=== PATIENT | female | born 1990 | race African-American/Black ===

== ENCOUNTER 2020-10-11 05:10 | Inpatient (IN) ==
[2020-10-11] MEDS ORDERED: ONDANSETRON 4 MG/2 ML VIAL IV PRN (05:18)
[2020-10-11] MEDS ORDERED: OXYTOCIN/LR 20 UNIT/1,000 ML BAG IV SCH (06:00)
[2020-10-11 06:02] LABS: Basophils % 0.1 % (0.0-0.8); Eosinophils # 0.1 10*3/uL (0.0-0.87); Eosinophils % 0.7 % (0.00-10.9); Hemoglobin 11.7 GM/DL (12.0-16.0); Immature Granulocytes % 0.5 %; Immature Granulocytes Absolute 0.05 #; Lymphocytes # 2.1 10*3/uL (1.4-4.0); Mean Corpuscular HGB Conc 31.6 GM/DL (32-36); Mean Corpuscular Volume 78.4 FL (87-102); Mean Platelet Volume 11.8 FL (9.6-12.0); NRBC # 0.02 10*3/uL; Neutrophils % 73.7 % (38.7-73.9); Platelet Count 277 T/CUMM (130-400); Red Blood Count 4.72 MC/CUMM (3.8-5.5); White Blood Count 10.9 T/CUMM (4-12)
[2020-10-11] MEDS: LACTATED RINGERS 1,000 ML IV SCH ×2 (06:03→12:06)
[2020-10-11 06:25] LABS: Alanine Aminotransferase 22 U/L (13-56); Albumin 2.8 G/DL (3.4-5.0); Alkaline Phosphatase 145 U/L (45-117); Aspartate Amino Transferase 26 U/L (0-37); Bilirubin,Total < 0.39 MG/DL (0.2-1.0); Blood Urea Nitrogen 5 MG/DL (7-18); Calcium 9.1 MG/DL (8.5-10.1); Carbon Dioxide 17 MMOL/L (21-32); Estimated Glom Filtration Rate 130 ML/MIN; Glucose 80 MG/DL (74-106); Osmolality,Calculated 270.7 MOS/KG (273-304); Sodium 138 MMOL/L (136-145); Total Protein 7.2 G/DL (6.4-8.3)
[2020-10-11] MEDS ORDERED: BUTORPHANOL 2 MG/ML VIAL IV PRN (06:36)
[2020-10-11] MEDS ORDERED: MEPERIDINE 50 MG/1 ML VIAL IV PRN (06:36)
[2020-10-11] MEDS ORDERED: FAMOTIDINE 20 MG/2 ML VIAL IV ONE (09:29)
[2020-10-11] MEDS ORDERED: LACTATED RINGERS 1,000 ML IV ONE (09:29)
[2020-10-11] MEDS ORDERED: CITRIC ACID/SODIUM CITRATE 30 ML UDCUP PO ONE (09:29)
[2020-10-11] MEDS ORDERED: NALOXONE 0.4 MG/ML VIAL IV PRN (09:30)
[2020-10-11] MEDS ORDERED: hydrOXYzine HCL 25 MG/1 ML VIAL IM PRN (09:30)
[2020-10-11] MEDS ORDERED: PROMETHAZINE 25 MG/1 ML VIAL IM ONE (09:30)
[2020-10-11] MEDS ORDERED: diphenhydrAMINE 50 MG/1 ML VIAL IV PRN ×2 (09:30)
[2020-10-11] MEDS ORDERED: ePHEDrine 50 MG/ML VIAL IV PRN (09:30)
[2020-10-11] MEDS ORDERED: fentaNYL 2 MCG/ROPIV 0.2% EPID 100 ML EPIDURAL SCH (09:30)
[2020-10-11] MEDS ORDERED: OXYTOCIN/LR 20 UNIT/1,000 ML BAG IV ONE (12:43)
[2020-10-11] MEDS ORDERED: miSOPROStoL 200 MCG TABLET ONE (12:43)
[2020-10-11] MEDS ORDERED: TRANEXAMIC ACID 1,000 MG/10 ML VIAL ONE (12:43)
[2020-10-11] MEDS ORDERED: METHYLERGONOVINE 0.2 MG/1 ML AMP ONE (12:44)
[2020-10-11] MEDS ORDERED: CARBOPROST TROMETHAMINE 250 MCG/ML AMP IM ONE (12:44)
[2020-10-11 13:54] LABS: Cord Arterial Blood HCO3 15.5 MMOL/L
[2020-10-11 13:57] LABS: Cord Venous Blood HCO3 15.5 MMOL/L; Cord Venous Blood PCO2 57.2 MMHG
[2020-10-11] MEDS ORDERED: LANOLIN 50% CREAM 0.3 OZ TUBE TOP PRN (13:59)
[2020-10-11] MEDS ORDERED: BENZOCAINE 20%/MENTHOL 0.5% SPRAY 56 GM CAN TOP PRN (13:59)
[2020-10-11] MEDS ORDERED: DIPH/TET/ACEL PERT BOOSTER VACCINE 0.5 ML VIAL IM ONE (13:59)
[2020-10-11] MEDS ORDERED: oxyCODONE/ACETAMINOPHEN 5-325 MG TABLET PO PRN (13:59)
[2020-10-11] MEDS ORDERED: WITCH HAZEL PADS 100/JAR TOP PRN (13:59)
[2020-10-11] MEDS ORDERED: RHO(D) IMMUNE GLOBULIN 300 MCG SYRINGE IM ONE (13:59)
[2020-10-11] MEDS ORDERED: BISACODYL 10 MG SUPP RECTAL PRN (13:59)
[2020-10-11] MEDS ORDERED: MEASLES/MUMPS/RUBELLA VACCINE 0.5 ML VIAL SUBCUT ONE (13:59)
[2020-10-11] MEDS ORDERED: ACETAMINOPHEN 325 MG TABLET PO PRN (13:59)
[2020-10-11] MEDS ORDERED: HYDROCORTISONE 2.5% RECTAL CREAM 30 GM TUBE TOP PRN (13:59)
[2020-10-11] MEDS: IBUPROFEN 800 MG TABLET PO PRN (18:07)
[2020-10-11] MEDS: DOCUSATE SODIUM 100 MG CAPSULE PO SCH (20:08)
[2020-10-12] MEDS: IBUPROFEN 800 MG TABLET PO PRN (01:56)
[2020-10-12 06:17] LABS: Basophils % 0.1 % (0.0-0.8); Eosinophils # 0.1 10*3/uL (0.0-0.87); Eosinophils % 0.6 % (0.00-10.9); Hematocrit 31.2 VOL% (35.7-47.0); Immature Granulocytes % 0.5 %; Immature Granulocytes Absolute 0.07 #; Lymphocytes # 2.4 10*3/uL (1.4-4.0); Lymphocytes % 17.5 % (21.3-54.2); Mean Corpuscular HGB Conc 32.1 GM/DL (32-36); Mean Corpuscular Volume 78.4 FL (87-102); Mean Platelet Volume 11.4 FL (9.6-12.0); Monocytes % 7.9 % (1.7-12.7); Neutrophils % 73.4 % (38.7-73.9); Platelet Count 206 T/CUMM (130-400); Red Blood Count 3.98 MC/CUMM (3.8-5.5); White Blood Count 13.8 T/CUMM (4-12)
[2020-10-12] MEDS: MULTIVITAMIN (PRENATAL) TABLET PO SCH (08:33)
[2020-10-12] MEDS: DOCUSATE SODIUM 100 MG CAPSULE PO SCH ×2 (08:33→21:14)
[2020-10-13 08:13] VITALS: BP 138/67
[2020-10-13] MEDS: DOCUSATE SODIUM 100 MG CAPSULE PO SCH (08:57)
[2020-10-13] MEDS: MULTIVITAMIN (PRENATAL) TABLET PO SCH (08:57)
== END 2020-10-13 12:25 | disposition home or self-care (01) | DRG 560 ==
LOC: N.LDOUT 05:10 → N.LD 05:12 → N.OB 17:58
PROVIDERS: ADMIT Obstetrics & Gynecology; ATTEND Obstetrics & Gynecology